=== PATIENT | female | born 1975 | race Hispanic/Latino ===

== ENCOUNTER 2021-11-03 09:33 | Emergency (ER) | payer SELFPAY ==
[2021-11-03 10:04] LABS: #Basophils 0.1 thou/uL (0.0-0.2); #Eosinphils 0.3 thou/uL (0.0-0.7); #Monocytes 0.3 thou/uL (0.11-0.59); #Neutrophils 3.4 thou/uL (1.40-6.50); %Basophils 0.8 % (0.0-1.0); %Eosinophils 4.9 % (0.0-10.0); %Lymphocytes 33.8 % (21.0-51.0); %Monocytes 4.4 % (0.0-10.0); Hemoglobin 13.9 g/dL (12.0-16.0); Mean Corpuscular HGB CONC 32.7 g/dL (32.0-36.0); Mean Corpuscular Volume 91.5 fL (78.0-98.0); Mean Platelet Volume 7.5 fL (7.4-10.4); Platelet Count 321 thou/uL (130-400); Red Blood Cell (RBC) Count 4.64 mill/uL (4.20-5.40)
[2021-11-03 10:13] LABS: BHCG - Serum Negative (NEGATIVE); Pregs Control Background? CLEAR/WHITE (CLR/WHITE); Pregs Control Bar Appear? YES (CONTROL BAR)
[2021-11-03 10:28] LABS: ALT (SGPT) 24 U/L (8-55); AST (SGOT) 17 U/L (5-34); Albumin 4.2 g/dL (3.5-5.0); Alkaline Phosphatase 77 U/L (40-110); Anion Gap 13 mmol/L (10-20); BUN (Urea Nitrogen) 12 mg/dL (7.0-18.7); Bilirubin, Total 0.5 mg/dL (0.2-1.2); Calc. Creatinine Clearance 0 mL/min (70-130); Calcium 8.9 mg/dL (7.8-10.44); Carbon Dioxide 24 mmol/L (22-29); Chloride 105 mmol/L (98-107); Globulin 3.4 g/dL (2.4-3.5); Glucose 116 mg/dL (70-105); Lipase 28 U/L (8-78); Potassium 3.9 mmol/L (3.5-5.1); Protein, Total 7.6 g/dL (6.0-8.3); Sodium 138 mmol/L (136-145)
[2021-11-03] MEDS ORDERED: Morphine 4 MG/ML VIAL ONE (11:24)
[2021-11-03] MEDS ORDERED: Ondansetron PF 4 MG/2 ML Vial ONE (11:24)
[2021-11-03 13:19] LABS: Bilirubin Negative (Negative); Blood, Urine 3+ (Negative); Clarity Clear (Clear); Glucose, Urine (Dipstick) Normal (Negative); Ketone, Urine Negative (Negative); Leukocyte Negative Leu/uL (Negative); Nitrite Negative (Negative); Protein, Urine (Dipstick) Negative (Neg-Trace); RBC/HPF 0-3 HPF (0-3); Urobilinogen Normal mg/dL (Less than 2); WBC/HPF 0-3 HPF (0-3); pH, Urine 6.5 (5.0-9.0)
[2021-11-03 13:21] LABS: Bacteria/HPF 1+ HPF (None Seen)
[2021-11-03] MEDS ORDERED: Fentanyl 100 MCG/2 ML VIAL ONE (13:38)
== END 2021-11-03 15:05 | disposition home or self-care (01) ==
LOC: ERS 09:33
DX: K43.9 Ventral hernia without obstruction or gangrene (principal); B02.9 Zoster without complications; E11.9 Type 2 diabetes mellitus without complications; E03.9 Hypothyroidism, unspecified
CPT/HCPCS: 36415; 74177; 80053; 81003; 81015; 83690; 84703; 85025; 96374; 96375; J2270; J2405; J3010